=== PATIENT | female | born 1990 | race Caucasian/White ===

== ENCOUNTER 2021-10-19 04:57 | Emergency (ER) | payer BC ==
[~2021-10-19] VITALS: Ht 175.3 cm; Wt 81.8 kg
[2021-10-19] MEDS ORDERED: LIDOcaine 1% W/epiNEPHrine 1:200,000 10ml vial IJ ONE (05:20)
[2021-10-19] MEDS ORDERED: LIDOcaine 1% W/epiNEPHrine 1:100,000 20ml vial IJ ONE (05:25)
[2021-10-19] MEDS ORDERED: dexamethasone 4mg tablet PO ONE (06:05)
[2021-10-19 06:39] VITALS: BP 127/86
[2021-10-19] MEDS ORDERED: ketorolac trometh. 30mg/ml inj. IV ONE (06:40)
[2021-10-19] MEDS ORDERED: penicillin G benzathine 1.2 million unit/2ml syringe IM ONE (06:40)
--- NOTE | 2021-10-19 06:49 | NUR ---
Pt is awake and alert. Boyfriend at the bedside. Pt can barely swallow saliva. L side of throat is very swollen and red. "When I swallow, it goes up my nose."
[2021-10-19] MEDS ORDERED: PENICILLIN G BENZATHINE 2,400,000 UNIT/4 ML SYRINGE IM ONE (06:50)
[2021-10-19 07:13] LABS: HCG SERUM QL NEGATIVE
--- NOTE | 2021-10-19 07:25 | NUR ---
Dr. Vallejo is aware of pt's swollen airway and difficulty swallowing.
[2021-10-19] MEDS ORDERED: NAPR-56 PO (07:28)
--- NOTE | 2021-10-19 08:15 | NUR ---
Pt stated that "I can't swallow better." and her pain is down to a 6/10.
--- NOTE | 2021-10-19 08:40 | NUR ---
Pt and boyfriend given and understands d/c instructions. IV d/c'd, catheter was intact. Ambulatory with a steady gait.
== END 2021-10-19 08:40 | disposition home or self-care (01) ==
LOC: ER 04:59
DX: J02.0 Streptococcal pharyngitis (principal); R07.0 Pain in throat; Z79.899 Other long term (current) drug therapy
CPT/HCPCS: 36415; 70490; 84703; 87880; 96372; 96374; 99284; J0561; J1885